=== PATIENT | male | born 1950 | race Caucasian/White ===

== ENCOUNTER 2021-10-22 18:03 | Inpatient (IN) | payer MEDICARE, BC ==
[~2021-10-22] VITALS: Ht 193 cm; Wt 130.6 kg
[2021-10-22 18:50] LABS: BASOPHILS # (AUTO) 0.1 (0.0-0.1); BASOPHILS % 0.5 % (0.0-1.0); EOSINOPHILS # (AUTO) 0.1 (0.0-0.4); EOSINOPHILS % 1.2 % (0.0-6.0); HEMATOCRIT 47.2 % (38.2-49.6); HEMOGLOBIN 15.3 g/dL (14.0-18.0); LYMPHOCYTES # (AUTO) 1.6 (1.0-3.2); LYMPHOCYTES % 16.8 % (18.0-39.1); MEAN CORPUSCULAR HEMOGLOBIN 30.9 pg (28-32); MEAN CORPUSCULAR HGB CONC 32.4 g/dL (31-35); MEAN CORPUSCULAR VOLUME 95.4 fL (81-99); MONOCYTES # (AUTO) 0.6 (0.2-0.8); MONOCYTES % 6.8 % (4.4-11.3); NEUTROPHILS # (AUTO) 6.9 (2.1-6.9); NEUTROPHILS % 73.7 % (38.7-80.0); PLATELET COUNT 261 x10e3/uL (140-360); RED BLOOD COUNT 4.95 x10e6/uL (4.3-5.7); RED CELL DISTRIBUTION WIDTH 13.6 % (11.7-14.4)
[2021-10-22 19:21] LABS: ALBUMIN 4.1 g/dL (3.5-5.0); ALBUMIN/GLOBULIN RATIO 1.2 (0.8-2.0); ANION GAP 13.9 mmol/L (8-16); CALCIUM 9.2 mg/dL (8.4-10.2); CREATININE, SERUM 1.13 mg/dL (0.72-1.25); POTASSIUM 3.9 mmol/L (3.5-5.1)
[2021-10-22] MEDS ORDERED: Morphine 4mg Syringe 4 MG/ML INJ IV PRN (19:45)
[2021-10-22] MEDS: PIPERACILLIN/TAZOBACTAM 4.5 GM in SODIUM CHLORIDE 0.9% 100 ML IV SCH (20:11)
[2021-10-22] MEDS: SODIUM CHLORIDE 0.9% 1000ML 1,000 ML IV SCH (20:11)
[2021-10-22 20:57] VITALS: BP 134/76
[2021-10-22 22:00] VITALS: BP 134/76
[2021-10-22] MEDS: Vancomycin IV 1 GM in SODIUM CHLORIDE 0.9% 250ML 250 ML IV SCH (22:03)
[2021-10-22] MEDS ORDERED: ASPIRIN81 MG PO (22:52)
[2021-10-22] MEDS ORDERED: ZETIA10 MG PO (22:52)
[2021-10-22] MEDS ORDERED: CETIRIZINE HCL10 MG PO (22:52)
[2021-10-22] MEDS ORDERED: VITAMIN D350 MCG PO (22:52)
[2021-10-22] MEDS ORDERED: CENTRUM ADULTS1 EACH PO (22:52)
[2021-10-22] MEDS ORDERED: LEVOTHYROXINE50 MCG PO (22:52)
[2021-10-22] MEDS ORDERED: ZESTRIL40 MG PO (22:52)
[2021-10-22] MEDS ORDERED: TOPIRAMATE25 MG PO (22:52)
[2021-10-22] MEDS ORDERED: SERTRALINE HCL25 MG PO (22:52)
[2021-10-22] MEDS ORDERED: AMLODIPINE BESY10 MG PO (22:52)
[2021-10-22] MEDS ORDERED: HYDROCHLOROTHIA25 MG PO (22:52)
[2021-10-22] MEDS ORDERED: NASACORT16.9 ML (22:52)
[2021-10-22] MEDS ORDERED: ATORVASTATIN CA40 MG PO (22:52)
[2021-10-23] VITALS (7 sets, daily range): BP systolic 113–130; BP diastolic 68–79
[2021-10-23] MEDS: SODIUM CHLORIDE 0.9% 1000ML 1,000 ML IV SCH ×2 (03:22→11:43)
[2021-10-23 05:03] LABS: BASOPHILS # (AUTO) 0.1 (0.0-0.1); BASOPHILS % 0.6 % (0.0-1.0); EOSINOPHILS # (AUTO) 0.2 (0.0-0.4); EOSINOPHILS % 1.7 % (0.0-6.0); HEMATOCRIT 40.7 % (38.2-49.6); HEMOGLOBIN 13.4 g/dL (14.0-18.0); LYMPHOCYTES % 21.4 % (18.0-39.1); MEAN CORPUSCULAR HGB CONC 32.9 g/dL (31-35); MEAN CORPUSCULAR VOLUME 94.2 fL (81-99); MONOCYTES # (AUTO) 0.8 (0.2-0.8); NEUTROPHILS # (AUTO) 6.3 (2.1-6.9); NEUTROPHILS % 67.6 % (38.7-80.0); PLATELET COUNT 227 x10e3/uL (140-360); RED BLOOD COUNT 4.32 x10e6/uL (4.3-5.7); RED CELL DISTRIBUTION WIDTH 13.3 % (11.7-14.4)
[2021-10-23 05:46] LABS: ANION GAP 12.7 mmol/L (8-16); CALCIUM 8.6 mg/dL (8.4-10.2); CREATININE, SERUM 0.97 mg/dL (0.72-1.25); POTASSIUM 3.7 mmol/L (3.5-5.1)
[2021-10-23] MEDS: PIPERACILLIN/TAZOBACTAM 4.5 GM in SODIUM CHLORIDE 0.9% 100 ML IV SCH (08:18)
[2021-10-23] MEDS: Vancomycin IV 1 GM in SODIUM CHLORIDE 0.9% 250ML 250 ML IV SCH (08:18)
[2021-10-23] MEDS ORDERED: INFLUENZA VIRUS VAC SPLIT INJ 0.5 ML SYR IM SCH (09:00)
[2021-10-23] MEDS ORDERED: PNEUMOCOCCAL VACCINE POLYVALENT 23 MCG/0.5 ML VIAL IM SCH (09:00)
[2021-10-23] MEDS ORDERED: ACETAMINOPHEN 325 MG TAB PO PRN (10:30)
[2021-10-23] MEDS ORDERED: MAGNESIUM HYDROXIDE 30 ML UDC PO PRN (10:30)
[2021-10-23 10:48] LABS: CHOL/HDL RATIO 4.6 (3.9-4.7)
[2021-10-23 11:16] LABS: FREE THYROXINE INDEX 1.4385 (1.4-3.8); THYROID STIMULATING HORMONE 9.128 uIU/mL (0.350-4.940)
[2021-10-23] MEDS: TOPIRAMATE 25 MG TAB PO SCH (17:38)
[2021-10-23] MEDS: MUPIROCIN 2% OINT 22 GM TUBE TOP SCH ×2 (17:38→23:04)
[2021-10-23] MEDS: HEPARIN SOD (PORCINE) 5,000 UNIT/ML VIAL SC SCH (21:00)
[2021-10-23] MEDS ORDERED: NON-FORMULARY MEDICATION (Atorvastatin Calcium 40 MG) PO SCH (21:00)
[2021-10-23] MEDS: CLINDAMYCIN 600MG / 50ML 50 ML IV SCH (21:16)
[2021-10-23] MEDS: ATORVASTATIN 40 MG TAB PO SCH (21:16)
[2021-10-24] VITALS (8 sets, daily range): BP systolic 118–140; BP diastolic 58–78
[2021-10-24] MEDS: SODIUM CHLORIDE 0.9% 1000ML 1,000 ML IV SCH ×2 (00:06→14:23)
[2021-10-24] MEDS: LEVOTHYROXINE SODIUM 50 MCG TAB PO SCH (05:50)
[2021-10-24] MEDS: CLINDAMYCIN 600MG / 50ML 50 ML IV SCH ×3 (05:50→21:46)
[2021-10-24] MEDS: MUPIROCIN 2% OINT 22 GM TUBE TOP SCH ×4 (05:50→23:37)
[2021-10-24] MEDS ORDERED: LIDOCAINE 1% 5ML-MPF INJ ONE (07:00)
[2021-10-24] MEDS ORDERED: LIDOCAINE HCL 1% LOCAL INJ 20 ML VIAL INJ ONE ×2 (07:00→19:00)
[2021-10-24] MEDS ORDERED: BETAMETHASONE DISODIUM PHOS 6 MG/ML VIAL IM ONE ×3 (07:00→19:00)
[2021-10-24] MEDS ORDERED: AMLODIPINE BESYLATE 10 MG TAB PO SCH (09:00)
[2021-10-24] MEDS: TRIAMCINOLONE ACETONIDE NS SCH (09:00)
[2021-10-24] MEDS ORDERED: LISINOPRIL 20 MG TAB PO SCH (09:00)
[2021-10-24] MEDS ORDERED: SERTRALINE HCL 75 MG PO SCH (09:00)
[2021-10-24] MEDS: ASPIRIN 81 MG CHEW TAB PO SCH (09:52)
[2021-10-24] MEDS: HYDROCHLOROTHIAZIDE 25 MG TAB PO SCH (09:52)
[2021-10-24] MEDS: AMLODIPINE BESYLATE 5 MG TAB PO SCH (09:52)
[2021-10-24] MEDS: MULTIVITAMINS/MINERALS TAB PO SCH (09:52)
[2021-10-24] MEDS: TOPIRAMATE 25 MG TAB PO SCH ×2 (09:53→17:49)
[2021-10-24] MEDS: SERTRALINE HCL 50 MG TAB PO SCH (09:53)
[2021-10-24] MEDS: LISINOPRIL 20 MG TAB PO SCH (09:53)
[2021-10-24] MEDS: EZETIMIBE 10 MG TAB PO SCH (09:53)
[2021-10-24] MEDS: HEPARIN SOD (PORCINE) 5,000 UNIT/ML VIAL SC SCH ×2 (09:54→21:47)
[2021-10-24] MEDS: ATORVASTATIN 40 MG TAB PO SCH (21:46)
[2021-10-25 00:37] VITALS: BP 141/74
[2021-10-25] MEDS: SODIUM CHLORIDE 0.9% 1000ML 1,000 ML IV SCH (02:43)
[2021-10-25 04:18] VITALS: BP 144/90
[2021-10-25 05:03] LABS: BASOPHILS # (AUTO) 0.1 (0.0-0.1); BASOPHILS % 0.7 % (0.0-1.0); EOSINOPHILS # (AUTO) 0.2 (0.0-0.4); EOSINOPHILS % 2.1 % (0.0-6.0); HEMATOCRIT 40.4 % (38.2-49.6); HEMOGLOBIN 13.7 g/dL (14.0-18.0); LYMPHOCYTES # (AUTO) 1.9 (1.0-3.2); LYMPHOCYTES % 26.9 % (18.0-39.1); MEAN CORPUSCULAR HEMOGLOBIN 31.4 pg (28-32); MEAN CORPUSCULAR HGB CONC 33.9 g/dL (31-35); MEAN CORPUSCULAR VOLUME 92.4 fL (81-99); MONOCYTES # (AUTO) 0.6 (0.2-0.8); MONOCYTES % 8.5 % (4.4-11.3); NEUTROPHILS # (AUTO) 4.3 (2.1-6.9); NEUTROPHILS % 61.2 % (38.7-80.0); PLATELET COUNT 214 x10e3/uL (140-360); RED BLOOD COUNT 4.37 x10e6/uL (4.3-5.7)
[2021-10-25] MEDS: CLINDAMYCIN 600MG / 50ML 50 ML IV SCH (05:17)
[2021-10-25] MEDS: LEVOTHYROXINE SODIUM 50 MCG TAB PO SCH (05:17)
[2021-10-25] MEDS: MUPIROCIN 2% OINT 22 GM TUBE TOP SCH ×2 (05:17→12:00)
[2021-10-25 05:38] LABS: ALBUMIN 3.3 g/dL (3.5-5.0); ALBUMIN/GLOBULIN RATIO 1.2 (0.8-2.0); ANION GAP 13.7 mmol/L (8-16); CALCIUM 8.8 mg/dL (8.4-10.2); CREATININE, SERUM 0.96 mg/dL (0.72-1.25); POTASSIUM 3.7 mmol/L (3.5-5.1)
[2021-10-25 05:42] LABS: THYROID STIMULATING HORMONE 16.961 uIU/mL (0.350-4.940)
[2021-10-25 08:00] VITALS: BP 144/90
[2021-10-25 09:00] VITALS: BP 138/74
[2021-10-25] MEDS: AMLODIPINE BESYLATE 5 MG TAB PO SCH (09:00)
[2021-10-25] MEDS: HEPARIN SOD (PORCINE) 5,000 UNIT/ML VIAL SC SCH (09:00)
[2021-10-25] MEDS: ASPIRIN 81 MG CHEW TAB PO SCH (09:00)
[2021-10-25] MEDS: EZETIMIBE 10 MG TAB PO SCH (09:00)
[2021-10-25] MEDS: TRIAMCINOLONE ACETONIDE NS SCH (09:00)
[2021-10-25] MEDS: SERTRALINE HCL 50 MG TAB PO SCH (09:00)
[2021-10-25] MEDS: HYDROCHLOROTHIAZIDE 25 MG TAB PO SCH (09:00)
[2021-10-25] MEDS: TOPIRAMATE 25 MG TAB PO SCH (09:00)
[2021-10-25] MEDS: LISINOPRIL 20 MG TAB PO SCH (09:00)
[2021-10-25] MEDS: MULTIVITAMINS/MINERALS TAB PO SCH (09:00)
[2021-10-25] MEDS ORDERED: NORVASC5 MG PO (11:48)
[2021-10-25] MEDS ORDERED: CLEOCIN HCL300 MG PO ×2 (11:48→12:57)
[2021-10-25] MEDS ORDERED: LEVOTHYROXINE50 MCG PO ×2 (12:56→12:57)
[2021-10-25] MEDS ORDERED: AMLODIPINE BESYL5 MG PO (12:57)
[2021-10-25 13:00] VITALS: BP 127/81
[2021-10-25] MEDS ORDERED: CLINDAMYCIN HCL 150 MG CAP PO SCH (13:00)
== END 2021-10-25 13:50 | disposition home or self-care (01) | DRG 264 ==
LOC: ER 18:22 → ERHOLD 19:45 → MED/SURG2 21:14
PROVIDERS: ADMIT Internal Medicine; ATTEND Internal Medicine
PROC: 0JBQ0ZZ Excision of Right Foot Subcutaneous Tissue and Fascia, Open Approach (ICD-10-PCS; principal; 2021-10-24)
DX: I96 Gangrene, not elsewhere classified (principal); L89.893 Pressure ulcer of other site, stage 3; L03.115 Cellulitis of right lower limb; E03.9 Hypothyroidism, unspecified; F32.A Depression, unspecified; Z79.899 Other long term (current) drug therapy; Z20.822 Contact with and (suspected) exposure to COVID-19; I10 Essential (primary) hypertension
CPT/HCPCS: 36415; 80048; 80053; 80061; 80202; 83605; 84436; 84443; 84479; 85025; 87040; 93005; 93306; 93925; 93970; 94799; 99284; J0720; J1644; J2001; J2543; J3370; J7030; J7050; U0002